=== PATIENT | female | born 1990 | race Caucasian/White ===

== ENCOUNTER 2021-03-11 16:05 | Inpatient (IN) | payer BC ==
[~2021-03-11 16:05] MED LIST: ROPIVACAINE 5MG/ML 20ML VIAL ONE; SODIUM CHLORIDE 0.9% 100 ML BAG ONE; fentaNYL (PF) 50 MCG/ML 5 ML AMP ONE
[2021-03-11] MEDS ORDERED: DINOPROSTONE 10 MG INSERT.ER VAGINAL ONE (16:38)
[2021-03-11] MEDS ORDERED: ZOLPIDEM 5 MG TAB PO PRN (17:05)
[2021-03-12] MEDS: BUTORPHANOL 1 MG/ML 1 ML VIAL IV PRN ×3 (03:17→07:38)
[2021-03-12] MEDS ORDERED: METHYLERGONOVINE 0.2 MG/ML 1 ML AMP IM PRN (03:20)
[2021-03-12] MEDS ORDERED: TERBUTALINE 1 MG/ML VIAL SQ PRN (03:20)
[2021-03-12] MEDS ORDERED: OXYTOCIN 10 UNIT/ML 1 ML VIAL IM PRN (03:20)
[2021-03-12] MEDS ORDERED: LIDOCAINE 0.5% (PF) 5 MG/ML (50 ML SDV) SQ PRN (03:20)
[2021-03-12] MEDS ORDERED: CARBOPROST TROMETHAMINE 250 MCG/ML 1 ML AMP IM PRN (03:20)
[2021-03-12] MEDS: LACTATED RINGERS 1,000 ML IV SCH ×4 (03:27→17:31)
[2021-03-12 04:07] LABS: Basophils % (A) 0 %; Eosinophils % (A) 0 %; HCT 34.8 % (34.0-46.0); HGB 11.7 gm/dL (11.4-16.0); Hypochromasia Slight; Lymphocytes # (A) 1.8 k/uL (1.0-4.8); Lymphocytes % (A) 16 %; MCH 30.4 pg (25.0-35.0); MCHC 33.5 g/dL (31.0-37.0); MCV 90.6 fL (80.0-100.0); Mean Platelet Volume 7.7; Monocytes # (A) 0.6 k/uL (0-1.0); Monocytes % (A) 5 %; Neutrophils # (A) 8.5 k/uL (1.3-7.7); Neutrophils % (A) 77 %; Platelet Count 367 k/uL (150-450); RBC 3.84 m/uL (3.80-5.40); RDW 14.3 % (11.5-15.5); WBC 11.1 k/uL (3.8-10.6)
[2021-03-12] MEDS ORDERED: OXYTOCIN 30 UNITS/500 ML NS 30 UNIT in SALINE 1 500ML.BAG IV SCH ×2 (06:00→20:15)
[2021-03-12] MEDS ORDERED: ONDANSETRON 4 MG/2 ML VIAL IVP STA (16:23)
[2021-03-12] MEDS ORDERED: CITRIC ACID-SODIUM CITRATE 15 ML CUP PO ONE (18:56)
[2021-03-12] MEDS ORDERED: PHENYLEPHRINE-0.9% NACL SYG 1,000 MCG/10 ML SYRINGE ONE (19:17)
[2021-03-12] MEDS ORDERED: ONDANSETRON 4 MG/2 ML VIAL ONE (19:17)
[2021-03-12] MEDS ORDERED: MORPHINE SULFATE (PF) 0.3 MG/0.3 ML SYR ONE (19:17)
[2021-03-12] MEDS ORDERED: OXYTOCIN 30 UNITS/500 ML NS BAG IV ONE (19:17)
[2021-03-12] MEDS ORDERED: ONDANSETRON 4 MG/2 ML VIAL IVP PRN (20:10)
[2021-03-12] MEDS ORDERED: ZOLPIDEM 5 MG TAB PO PRN (20:10)
[2021-03-12] MEDS ORDERED: NALOXONE 0.4 MG/ML 1 ML VIAL IV PRN (20:10)
[2021-03-12] MEDS ORDERED: LANOLIN CREAM 5 GM TUBE TOPICAL PRN (20:10)
[2021-03-12] MEDS ORDERED: diphenhydrAMINE 50 MG CAP PO PRN (20:10)
[2021-03-12] MEDS ORDERED: SIMETHICONE 80 MG CHEWABLE PO PRN (20:10)
[2021-03-12] MEDS ORDERED: METOCLOPRAMIDE 5 MG/ML 2 ML VIAL IVP PRN (20:10)
[2021-03-12] MEDS ORDERED: diphenhydrAMINE 50 MG/ML 1 ML VIAL IVP PRN ×2 (20:10)
[2021-03-12] MEDS ORDERED: diphenhydrAMINE 25 MG CAP PO PRN (20:10)
[2021-03-12] MEDS: ACETAMINOPHEN IV (For NPO) 1,000 MG in EMPTY BAG 1 BAG IVPB SCH (22:33)
[2021-03-13] MEDS: LACTATED RINGERS 1,000 ML IV SCH (04:51)
[2021-03-13] MEDS: ACETAMINOPHEN IV (For NPO) 1,000 MG in EMPTY BAG 1 BAG IVPB SCH (04:58)
[2021-03-13 07:26] LABS: Basophils % (A) 0 %; Eosinophils % (A) 0 %; HCT 31.6 % (34.0-46.0); HGB 10.3 gm/dL (11.4-16.0); Hypochromasia Slight; Lymphocytes # (A) 1.2 k/uL (1.0-4.8); Lymphocytes % (A) 7 %; MCH 29.8 pg (25.0-35.0); MCHC 32.6 g/dL (31.0-37.0); MCV 91.3 fL (80.0-100.0); Mean Platelet Volume 7.3; Monocytes # (A) 1.1 k/uL (0-1.0); Monocytes % (A) 6 %; Neutrophils # (A) 15.6 k/uL (1.3-7.7); Neutrophils % (A) 86 %; Platelet Count 300 k/uL (150-450); RBC 3.46 m/uL (3.80-5.40); RDW 14.5 % (11.5-15.5); WBC 18.2 k/uL (3.8-10.6)
--- NOTE | 2021-03-13 07:27 | P.PN ---
Progress Note - Text Progress Note Date: 03/13/21 30-year-old female status post section with use of epidural indwelling catheter. 3 mg of morphine were injected in the epidural space. Patient doing well postop day #1. No problems or complications from the Duramorph for epidural catheter. Ambulating well with no issue, no complaints of pruritus or pain. Overall patient doing well.
[2021-03-13] MEDS: SENNOSIDES-DOCUSATE SODIUM 1 EACH TAB PO SCH ×2 (08:15→20:55)
[2021-03-13] MEDS ORDERED: Rhogam IMMUNE GLOBULIN 1,500 UNIT/1 ML IM ONE (08:17)
[2021-03-13] MEDS: ACETAMINOPHEN TAB 500 MG TAB PO PRN ×2 (12:15→18:19)
[2021-03-14] MEDS: ACETAMINOPHEN TAB 500 MG TAB PO PRN ×2 (00:33→08:31)
--- NOTE | 2021-03-14 07:38 | P.HPOB ---
History of Present Illness H&P Date: 03/11/21 Chief Complaint: induction of labor 30 year old presents at 40 weeks 1 day fo induction of labor. Her cervix is closed, thick and high. She i snot russ. heart tones 140 with moderate variability. Review of Systems All systems: negative Constitutional: Denies chills, Denies fever Eyes: denies blurred vision, denies pain Ears, nose, mouth and throat: Denies headache, Denies sore throat Cardiovascular: Denies chest pain, Denies shortness of breath Respiratory: Denies cough Gastrointestinal: Denies abdominal pain, Denies diarrhea, Denies nausea, Denies vomiting Genitourinary: Denies dysuria, Denies hematuria Musculoskeletal: Denies myalgias Integumentary: Denies pruritus, Denies rash Neurological: Denies numbness, Denies weakness Psychiatric: Denies anxiety, Denies depression Endocrine: Denies fatigue, Denies weight change Past Medical History Past Medical History: No Reported History History of Any Multi-Drug Resistant Organisms: None Reported Past Surgical History: No Surgical Hx Reported Additional Past Surgical History / Comment(s): Had [place] Teeth removed Past Anesthesia/Blood Transfusion Reactions: No Reported Reaction Past Psychological History: No Psychological Hx Reported Smoking Status: Never smoker - Past Family History Father History Unknown: Yes Medications and Allergies Home Medications Medication Instructions Recorded Confirmed Type No Known Home Medications 03/11/21 03/11/21 History Allergies Allergy/AdvReac Type Severity Reaction Status Date / Time acetaminophen Allergy Rash/Hives Verified 03/11/21 16:36 [From Excedrin Migraine] aspirin Allergy Rash/Hives Verified 03/11/21 16:36 [From Excedrin Migraine] caffeine Allergy Rash/Hives Verified 03/11/21 16:36 [From Excedrin Migraine] ibuprofen Allergy Swelling Verified 03/12/21 19:10 Exam Osteopathic Statement: *. No significant issues noted on an osteopathic structural exam other than those noted in the History and Physical/Consult. Vital Signs Temp Pulse Resp BP Pulse Ox 03/14/21 00:00 98.1 F 103 H 16 131/72 98 03/13/21 20:00 98.5 F 111 H 16 129/67 97 03/13/21 15:55 98.1 F 76 17 121/72 03/13/21 12:00 98.2 F 76 16 140/76 95 Heart: Regular rate and rhythm Lungs: Clear to auscultation bilaterally Abdomen: Soft, nontender Extremities: Negative Homans sign Results Result Diagrams: 03/13/21 06:34 Assessment and Plan (1) Encounter for induction of labor Current Visit: Yes Status: Acute Code(s): Z34.90 - ENCNTR FOR SUPRVSN OF NORMAL , UNSP, UNSP TRIMESTER SNOMED Code(s): 985266656 Plan: 1. induction of labor with cervidil and then pitocin and amniotomy in the morning.
--- NOTE | 2021-03-14 07:40 | P.OP ---
Date of Procedure: 03/12/21 Preoperative Diagnosis: 1. 40 weeks 2 days 2. arrest of descent Postoperative Diagnosis: 1. 40 weeks 2 days 2. arrest of descent Procedure(s) Performed: primary low transverse Anesthesia: epidural Surgeon: Jannet Feliciano Telephone Diaphragm Assembler #1: Yesica Dinero Estimated Blood Loss (ml): 680 IV fluids (ml): 500 Urine output (ml): 100 Pathology: none sent Condition: stable Disposition: floor Indications for Procedure: Patient presented for induction of labor. She did make DIAN to complete and pushed for an hour and 40 minutes but was not making descent with her effective pushes. Operative Findings: Viable female, Apgars 8, 9, weight 9 lbs. 4 oz. Description of Procedure: Patient was taken to the operating room where spinal anesthesia was found be adequate. She was prepped and draped in normal sterile fashion in dorsal supine position with a leftward tilt. Pfannenstiel skin incision was made the scalpel and carried through to the underlying layer of fascia with the scalpel. Fascia was incised in midline and carried bilaterally with the Shrestha scissors. The superior aspect of the fascial incision was grasped with [place] clamps elevated and the underlying rectus muscles dissected off with the Shrestha's. Attention was then turned to inferior aspect of same incision which in a similar fashion was grasped tented up and the underlying rectus muscles dissected off with the Shrestha's. The rectus muscles were the midline and the peritoneum was identified tented up and entered sharply with the scalpel. The incision was ext ended superiorly and inferiorly with good visualization of the bladder. The bladder blade was inserted and the vesicouterine peritoneum was incised the [place]zen[place]ums then carried bilaterally and bladder flap created digitally. A low transverse incision was then made on the uterus with the scalpel. This was carried bilaterally and digital manner. Infant's head delivered atraumatically, nose and mouth bulb suctioned, cord clamped and cut, infant handed off to waiting nurses. Apgars 8,9, weight 9 lbs. 4 oz. Placenta delivered manually, intact with three-vessel cord. The uterus is exteriorized and cleared of all clots and debris. The uterine incision was closed with 0 Vicryl in a running locked fashion. Second layer of the same sutures used in imbricating fashion to obtain excellent hemostasis. Bladder flap was then reapproximated using 2-0 Vicryl in a running fashion. Both ovaries and tubes appeared normal. The uterus was placed back into the abdomen. The peritoneum was reapproximated using 2-0 Vicryl in a running fashion. The muscles were reapproximated using 2- 0 Vicryl in interrupted fashion. The fascia was reapproximated using 0 Vicryl in a running fashion. The subcutaneous tissues closed with 3-0 Vicryl running fashion. The skin was closed eloy. Patient tolerated the procedure well, sponge and instrument counts were correct times 2 and she was taken to the r ecovery room in stable condition.
--- NOTE | 2021-03-14 07:42 | P.PNOBGPC ---
Subjective - Subjective Principal diagnosis: S/P 1*LTCS POD #1 Interval history: Patient seen and examined. Denies nausea, vomiting, chest pain, shortness of breath or calf pain. Her pain is well-controlled. : doing well Objective - Vital Signs Latest vital signs: Vital Signs Temp Pulse Resp BP Pulse Ox 03/14/21 00:00 98.1 F 103 H 16 131/72 98 03/13/21 20:00 98.5 F 111 H 16 129/67 97 03/13/21 15:55 98.1 F 76 17 121/72 03/13/21 12:00 98.2 F 76 16 140/76 95 - Exam Lungs: bilateral: normal Chest: Normal S1, Normal S2 Extremities: Present: normal Abdomen: Present: normal appearance, soft. Absent: distention, tenderness Incision: Present: normal, dry, intact Uterus: Present: normal, firm Assessment and Plan (1) Encounter for induction of labor Current Visit: Yes Status: Resolved Code(s): Z34.90 - ENCNTR FOR SUPRVSN OF NORMAL , UNSP, UNSP TRIMESTER SNOMED Code(s): 615365058 (2) Status post primary low transverse section Current Visit: Yes Status: Acute Code(s): Z98.891 - HISTORY OF UTERINE SCAR FROM PREVIOUS SURGERY SNOMED Code(s): 652020008 Plan: 1. By mouth pain medication
--- NOTE | 2021-03-14 07:45 | P.DS ---
Providers Date of admission: 03/11/21 16:05 Expected date of discharge: 03/14/21 Attending physician: Jannet Feliciano Primary care physician: Stated None - Discharge Diagnosis(es) (1) Encounter for induction of labor Current Visit: Yes Status: Resolved (2) Status post primary low transverse section Current Visit: Yes Status: Acute Hospital Course: Patient presented for induction of labor. She underwent a primary low transverse . course was uncomplicated. She denies nausea, incontinence pain, shortness of breath or calf pain. She'll be discharged home postoperative day #2 in stable condition to follow-up with me in one week. Plan - Discharge Summary New Discharge Prescriptions: New oxyCODONE HCL [OxyIR] 5 mg PO Q4HR PRN #20 tab PRN Reason: Pain Scale 4 - 6 Acetaminophen Tab [Tylenol] 1,000 mg PO Q6HR PRN #0 tab PRN Reason: Fever And/ Or Pain Discharge Medication List Acetaminophen Tab [Tylenol] 1,000 mg PO Q6HR PRN #0 tab 03/14/21 [Rx] oxyCODONE HCL [OxyIR] 5 mg PO Q4HR PRN #20 tab 03/14/21 [Rx] Follow up Appointment(s)/Referral(s): Jannet Feliciano DO [Doctor of Osteopathic Medicine] - 04/22/21 11:15 am (03-21-2021 at 09:45 a.m.) Discharge Disposition: HOME SELF-CARE
[2021-03-14 08:11] VITALS: BP 114/70; PULSE 105; RESP 18; TEMP 98.6
[2021-03-14] MEDS: SENNOSIDES-DOCUSATE SODIUM 1 EACH TAB PO SCH (08:32)
== END 2021-03-14 14:37 | disposition home or self-care (01) | DRG 788 ==
LOC: 4FBP 16:05
PROVIDERS: ADMIT Obstetrics & Gynecology; ATTEND Obstetrics & Gynecology
PROC: 3E0234Z Introduction of Serum, Toxoid and Vaccine into Muscle, Percutaneous Approach (ICD-10-PCS; principal; 2021-03-12 19:17)
PROC: 00HU33Z Insertion of Infusion Device into Spinal Canal, Percutaneous Approach (ICD-10-PCS; principal; 2021-03-12 19:17)
PROC: 10D00Z1 Extraction of Products of Conception, Low, Open Approach (ICD-10-PCS; principal; 2021-03-12 19:17)
PROC: 3E0R3BZ Introduction of Anesthetic Agent into Spinal Canal, Percutaneous Approach (ICD-10-PCS; principal; 2021-03-12 19:17)
DX: O26.893 Other specified pregnancy related conditions, third trimester (principal); Z37.0 Single live birth; O62.1 Secondary uterine inertia; Z67.11 Type A blood, Rh negative; Z3A.40 40 weeks gestation of pregnancy
CPT/HCPCS: 85025; 85461; 86850; 86900; 86901